=== PATIENT | female | born 1930 | race Caucasian/White ===

== ENCOUNTER → 2017-06-13 | Outpatient (CLI) | payer MEDICARE, OTHER ==
--- NOTE | 2017-06-16 19:41 | CT ---
EXAM DESCRIPTION: Head CLINICAL HISTORY: DIZZINESS AND GIDDINESS COMPARISON: Cerebral magnetic resonance imaging dated 12 February 2011 TECHNIQUE: Non contrast cranial CT.This exam was performed according to our departmental dose-optimization program, which includes automated exposure control, adjustment of the mA and/or kV according to patient size and/or use of iterative reconstruction technique. FINDINGS: Mild prominence of the ventricular system is observed. Periventricular white matter low-attenuation is noted. No mass lesions or mass effect are observed. No intracranial hemorrhage is noted. The paranasal sinuses and orbits as imaged are normal. The mastoid sinus air cells are clear. IMPRESSION: Senescent changes are observed. I see no acute brain parenchymal abnormality or significant interval change from the previous exam. Electronically signed by: Timur Jim MD 06/16/2017 7:40 PM CDT Workstation: [id number]
== END | disposition home or self-care (01) ==
LOC: CT 11:21
PROVIDERS: ATTEND Nurse Practitioner
DX: R42 Dizziness and giddiness (principal)

== ENCOUNTER → 2019-06-12 | Outpatient (CLI) | payer MEDICARE, OTHER | LOC: NM 10:08 | PROVIDERS: ATTEND General Practice | DX: R07.9 Chest pain, unspecified (principal); R94.31 Abnormal electrocardiogram [ECG] [EKG] ==